=== PATIENT | male | born 1985 | race Caucasian/White ===

== ENCOUNTER 2022-08-26 05:36 | Emergency (ER) | payer BC ==
[~2022-08-26] VITALS: Ht 188 cm; Wt 79.4 kg
[2022-08-26 07:40] LABS: Influenza A, PCR NEGATIVE (NEGATIVE); Influenza B, PCR NEGATIVE (NEGATIVE); Resp Syncytial Virus, PCR NEGATIVE (NEGATIVE); SARS-Cov-2 (COVID-19) PCR, MMC NEGATIVE (NEGATIVE)
[2022-08-26] MEDS ORDERED: ALBU90OI INH ×2 (07:52)
== END 2022-08-26 07:58 | disposition home or self-care (01) ==
LOC: ER 05:36
PROVIDERS: Student in an Organized Health Care Education/Training Program
DX: K64.8 Other hemorrhoids (principal); J06.9 Acute upper respiratory infection, unspecified; F17.210 Nicotine dependence, cigarettes, uncomplicated; Z20.822 Contact with and (suspected) exposure to COVID-19
CPT/HCPCS: 0241U; 71046; 87081; 87147; 87430; 94640; 94664